=== PATIENT | female | born 1945 | race American Indian/Alaskan Native ===

== ENCOUNTER 2019-02-25 10:05 | Outpatient (CLI) | payer MEDICARE ==
--- NOTE | 2019-02-25 13:18 | Mammography Report ---
BILATERAL DIGITAL SCREENING MAMMOGRAM with CAD: 02/25/19 10:05:00 CLINICAL: Routine screening. COMPARISON:01/18/16 and 11/16/14 FINDINGS: There are scattered areas of fibroglandular density. No mass, architectural distortion or suspicious calcifications. IMPRESSION: No mammographic evidence of malignancy. BI-RADS CATEGORY: 2 -- Benign RECOMMENDATION: Routine mammographic screening in one year. COMMENT: Patient follow-up letters are generated by our [employer] application.
== END 2019-02-25 10:06 | disposition home or self-care (01) ==
LOC: MAMMO 10:05
PROVIDERS: ATTEND Internal Medicine
DX: Z12.31 Encounter for screening mammogram for malignant neoplasm of breast (principal)
CPT/HCPCS: 77067

== ENCOUNTER 2021-03-07 09:43 | Outpatient (CLI) | payer MEDICARE ==
--- NOTE | 2021-03-07 10:58 | XRay Report ---
CHEST 2 VIEWS INDICATION / CLINICAL INFORMATION: COPD. COMPARISON: None available. FINDINGS: SUPPORT DEVICES: None. HEART / MEDIASTINUM: Atherosclerotic calcifications are noted in the aortic arch LUNGS / PLEURA: No significant pulmonary or pleural abnormality. No pneumothorax. ADDITIONAL FINDINGS: No significant additional findings. IMPRESSION: 1. No acute findings. Signer Name: Stephan Cramer MD Signed: 03/07/2021 10:54 AM Workstation Name: [id number]
--- NOTE | 2021-03-07 11:15 | Mammography Report ---
DIGITAL SCREENING MAMMOGRAM WITH CAD, 03/07/2021 CLINICAL INFORMATION / INDICATION: Routine screening TECHNIQUE: Digital bilateral 2D mammography was obtained in the craniocaudal and mediolateral obliqu e projections. This examination was interpreted with the benefit of Computer-Aided Detection analysis . COMPARISON: 02/25/2019 (except right cc), other prior studies not currently available FINDINGS: Breast Density: There are scattered areas of fibroglandular density. No dominant mass, suspicious calcifications, or architectural distortion in either breast. Mild bilateral axillary sara prominence is now seen, more on the left. Largest individual node is on the left with a short axis diameter of 18 mm and probable mild cortical thickening. IMPRESSION: No mammographic evidence of malignancy in either breast. However, there is mild bilateral axillary sara prominence now, more on the left. I have a history patient has had a Covid immunizati on on the left which likely accounts for the left-sided findings. If the patient has had a Covid immu nization on the right as well, the right sided mild sara prominence may also be explained. Follow up recommendation: Clinical verification of Covid immunization history and sides of injection is suggested. If this matches clinically, simple clinical follow-up is suggested. If there is a allan rn however, axillary ultrasound could be performed. BI-RADS Category 2: Benign. A "normal" or negative report should not discourage follow up or biopsy of a clinically significant f inding. A written summary of these findings will be mailed to the patient. The patient will be entered into a mammography reporting system which will generate a reminder letter for the patient's next appointmen t at the appropriate interval. The [employer] recommends yearly mammograms starting at age 40 and continuing as l rissa as a woman is in good health. Breast MRI is recommended for women with an approximate 20-25% or greater lifetime risk of breast cancer, including women with a strong family history of breast or ova beto cancer or who have been treated for Hodgkin's disease. Signer Name: Burton Esteban MD Signed: 03/07/2021 11:10 AM Workstation Name: [id number]
== END 2021-03-07 09:44 | disposition home or self-care (01) ==
LOC: MAMMO 09:43
PROVIDERS: ATTEND Internal Medicine
DX: Z12.31 Encounter for screening mammogram for malignant neoplasm of breast (principal); J44.9 Chronic obstructive pulmonary disease, unspecified; I70.0 Atherosclerosis of aorta
CPT/HCPCS: 71046; 77067

== ENCOUNTER 2022-03-08 10:01 | Outpatient (CLI) | payer MEDICARE ==
--- NOTE | 2022-03-09 10:45 | Mammography Report ---
DIGITAL SCREENING MAMMOGRAM WITH CAD, 03/08/2022 CLINICAL INFORMATION / INDICATION: Routine screening mammography. SCREENING MAMMOGRAM TECHNIQUE: Digital bilateral 2D mammography was obtained in the craniocaudal and mediolateral obliqu e projections. This examination was interpreted with the benefit of Computer-Aided Detection analysis . COMPARISON: 03/07/2021. FINDINGS: Breast Density: The breasts are almost entirely fatty. No dominant mass, suspicious calcifications, or architectural distortion in either breast. IMPRESSION: No mammographic evidence of malignancy. Follow up recommendation: Routine yearly screening mammogram. BI-RADS Category 1: NEGATIVE A "normal" or negative report should not discourage follow up or biopsy of a clinically significant f inding. A written summary of these findings will be mailed to the patient. The patient will be entered into a mammography reporting system which will generate a reminder letter for the patient's next appointmen t at the appropriate interval. The [employer] recommends yearly mammograms starting at age 40 and continuing as l rissa as a woman is in good health. Breast MRI is recommended for women with an approximate 20-25% or greater lifetime risk of breast cancer, including women with a strong family history of breast or ova beto cancer or who have been treated for Hodgkin's disease. Signer Name: Arash Ling MD Signed: 03/09/2022 10:41 AM Workstation Name: [id number]
== END 2022-03-08 10:02 | disposition home or self-care (01) ==
LOC: MAMMO 10:01
PROVIDERS: ATTEND Internal Medicine
DX: Z12.31 Encounter for screening mammogram for malignant neoplasm of breast (principal)
CPT/HCPCS: 77067